=== PATIENT | female | born 1985 | race Caucasian/White ===

== ENCOUNTER 2020-10-24 06:50 | Day surgery (SDC) | payer OTHER ==
[2020-10-21 14:17] LABS: BASOPHILS 0.5 % (0-2); EOSINOPHILS 1.9 % (0-7); HEMATOCRIT 40.5 % (36.0-48.0); HEMOGLOBIN 13.6 g/dL (12-16); LYMPHOCYTES 22.7 % (15-50); MCH 28.7 pg (26.0-34.0); MCHC 33.6 g/dL (31.0-37.0); MCV 85.5 fL (80.0-100.0); MEAN PLATELET VOLUME 7.8 fL (7.4-10.4); MONOCYTES 8.2 % (2-11); NEUTROPHILS 66.7 % (40-80); PLATELET COUNT 293 10x3/uL (130-400); RBC 4.74 10x6/uL (4.00-5.40); RDW 13.9 % (11.5-14.5); WBC 5.8 10x3/uL (4.8-10.8)
[2020-10-21 14:35] LABS: CALC OSMOLALITY 272 mosm/kg (275-300); CALCIUM 8.9 mg/dL (8.5-10.1); CARBON DIOXIDE 24.1 mmol/L (21.0-32.0); CHLORIDE - SERUM 105 mmol/L (98-107); CREATININE - SERUM 0.8 mg/dL (0.6-1.3); GLUCOSE 101 mg/dL (74-106); POTASSIUM - SERUM 4.2 mmol/L (3.5-5.1); SODIUM 135 mmol/L (136-145); UREA NITROGEN 22 mg/dL (7-18); eGFR NON AFRICAN AMERICAN 87 mL/min (90-120)
[~2020-10-24] VITALS: Ht 180.3 cm; Wt 122.0 kg
[~2020-10-24 06:50] MED LIST: CELEBREX50 MG; PROPRANOLOL HCL20 MG; PROZAC20 MG PO; SYNTHROID300 MCG; XANAX1 MG
[2020-10-24 07:25] LABS: HCG URINE NEGATIVE (NEGATIVE)
[2020-10-24 07:35] VITALS: BP 114/74; Ht 180.3 cm; Wt 122.0 kg
--- NOTE | 2020-10-24 13:03 | NUR ---
NAUSEA HAS SUBSIDED AFTER RECIEVING ZOFRAN. IV REMOVED WITH CATHALON INTACT. GETTING DRESSED TO GO HOME.
--- NOTE | 2020-10-24 13:26 | NUR ---
MINIMAL BLEEDING AT UMBILICAL SITE. REINFORCED DRESSING WITH ABD PAD AND TAPE. ALL DC INSTRUCTIONS GIVEN. TAKEN DOWN VIA W/C AND ASSISTED TO CAR WITH FAMILY. ADVISED TO CALL OR COME BACK IF ANY PROBLEMS.
--- NOTE | 2020-11-10 15:32 | OP ---
PATIENT NAME: RICKIE MCKEON MEDICAL RECORD: [id number] :87 LOCATION:[facility] ADMISSION DATE: SURGEON: GERALDO CAICEDO MD DATE OF OPERATION: 10/24/2020 PREOPERATIVE DIAGNOSES: 1. Family history of gynecologic/ovarian cancer. 2. The patient desires bilateral salpingectomy. POSTOPERATIVE DIAGNOSES: 1. Family history of gynecologic/ovarian cancer. 2. The patient desires bilateral salpingectomy. PROCEDURE: Laparoscopic bilateral salpingectomy. SURGEON: Geraldo Caicedo ANESTHESIA: General endotracheal. INTRAVENOUS FLUIDS: Per anesthesia record. FINDINGS: Included; 1. Grossly normal-appearing uterus. 2. Grossly normal-appearing fallopian tubes and ovaries. SPECIMENS: Include the bilateral fallopian tubes. ESTIMATED BLOOD LOSS: Minimal. COMPLICATIONS: None apparent. DESCRIPTION OF PROCEDURE: The patient was taken to the operating room where general anesthesia was achieved without any difficulty. The patient was then prepped and draped in normal sterile fashion in the dorsal lithotomy position in the [facility]. The patient was then prepped and draped and a Acosta catheter was placed. A HUMI uterine manipulator was then placed into the uterus for uterine manipulation during the procedure. At this point, following prep and drape, a 5-mm infraumbilical incision was made with an 11-blade and the intraperitoneal space was entered using a 5-mm bladeless trocar under direct visualization of the laparoscope. The introducer was removed and intraperitoneal placement was confirmed with the laparoscope. Survey of the abdomen and pelvis was performed and then in the bilateral lower quadrants two more 5-mm ports were placed by making a 5-mm skin incision in the bilateral lower quadrants and using the 5-mm bladeless trocars the ports were placed without any difficulty. Attention was then turned to the bilateral fallopian tubes, which were elevated by the fimbriated end and the mesosalpinx was then cauterized and cut using the Thunderbeat electrocautery/harmonic device. The mesosalpinx was taken to the level of the origin of the fallopian tube and then the Thunderbeat was clamped across the proximal end of the tube and then removed without difficulty. This was performed bilaterally. Good hemostasis was noted from all surgical sites. The patient was then desufflated partially and again good hemostasis was noted from the bilateral mesosalpinx. The fallopian tubes have been removed through one of the 5-mm ports each. The patient was then desufflated and the 3 trocars were removed. The skin was repaired with 3-0 Vicryl in an interrupted fashion. The uterine manipulator and tenaculum was OPERATIVE REPORT [id number] RICKIE MCKEON removed as well as a Acosta catheter. The patient tolerated the procedure well and was transferred to postanesthesia recovery stable without incident. TRANSINT:[id number] Voice Confirmation ID: [id number] DOCUMENT ID: [id number] GERALDO CAICEDO MD at 1532 CC: [id number] DICTATION DATE: 11/10/20 0558 LABORATORY MECHANICAL TECHNICIAN: 11/10/20 0900 [facility] 10/24/20 [id number] [place] [address]
== END 2020-10-24 13:15 | disposition home or self-care (01) ==
LOC: D.OPS 06:50
PROVIDERS: Anesthesiology; ATTEND Obstetrics & Gynecology
DX: Z30.2 Encounter for sterilization (principal); Z80.41 Family history of malignant neoplasm of ovary

== ENCOUNTER 2020-11-29 15:48 | Emergency (ER) | payer OTHER ==
[~2020-11-29] VITALS: Ht 180.3 cm; Wt 122.7 kg
[2020-11-29 15:51] VITALS: BP 128/62; Ht 180.3 cm; Wt 122.7 kg
[2020-11-29 16:15] LABS: BASOPHILS 0.5 % (0-2); EOSINOPHILS 1.9 % (0-7); HEMATOCRIT 38.6 % (36.0-48.0); HEMOGLOBIN 12.9 g/dL (12-16); MCH 29.2 pg (26.0-34.0); MCHC 33.4 g/dL (31.0-37.0); MCV 87.4 fL (80.0-100.0); MEAN PLATELET VOLUME 7.4 fL (7.4-10.4); MONOCYTES 5.3 % (2-11); NEUTROPHILS 71.3 % (40-80); PLATELET COUNT 305 10x3/uL (130-400); RBC 4.41 10x6/uL (4.00-5.40); RDW 13.8 % (11.5-14.5)
[2020-11-29 16:19] LABS: CALC OSMOLALITY 284 mosm/kg (275-300); CALCIUM 8.7 mg/dL (8.5-10.1); CARBON DIOXIDE 28.3 mmol/L (21.0-32.0); CHLORIDE - SERUM 106 mmol/L (98-107); CREATININE - SERUM 0.9 mg/dL (0.6-1.3); GLUCOSE 94 mg/dL (74-106); POTASSIUM - SERUM 3.9 mmol/L (3.5-5.1); SODIUM 142 mmol/L (136-145); UREA NITROGEN 19 mg/dL (7-18); eGFR NON AFRICAN AMERICAN 76 mL/min (90-120)
[2020-11-29 16:36] LABS: ALKALINE PHOSPHATASE 53 U/L (30-120); ALT (SGPT) 30 U/L (10-68); BILIRUBIN - TOTAL 0.22 mg/dL (0.2-1.3); CKMB 0.9 U/L (0.0-3.6); CREATINE KINASE 111 UL (21-215); MAGNESIUM - SERUM 1.9 mg/dL (1.8-2.4); PROTEIN - SERUM 7.4 g/dL (6.4-8.2)
[2020-11-29 16:46] LABS: TROPONIN-I < 0.017 ng/mL (0.000-0.060)
[2020-11-29 17:50] LABS: APTT 37.7 SECONDS (22.8-39.4); INR 1.07 (0.85-1.17); PROTIME 12.8 SECONDS (11.6-15.0)
[2020-11-29 17:51] LABS: D-DIMER-QUANTITATIVE < 0.27 ug/mLFEU (0.20-0.54)
== END 2020-11-29 18:38 | disposition home or self-care (01) ==
LOC: D.ER 15:48
PROVIDERS: Family Medicine
DX: R07.89 Other chest pain (principal)